=== PATIENT | female | born 1960 | race Caucasian/White ===

== ENCOUNTER 2017-09-11 09:00 | Day surgery (SDC) | payer OTHER ==
[~2017-09-11] VITALS: Ht 154.9 cm; Wt 64.2 kg
[2017-09-11 09:39] VITALS: Ht 154.9 cm; Wt 64.2 kg
[2017-09-11] MEDS ORDERED: LISI10TA2 PO (10:07)
[2017-09-11] MEDS ORDERED: LORA5SOL5 PO (10:07)
[2017-09-11] MEDS ORDERED: ATOR40TA68 PO (10:07)
[2017-09-11 10:20] VITALS: BP 148/66; PULSE 58; RESP 20
--- NOTE | 2017-09-11 10:52 | OPPN ---
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
[2017-09-11] MEDS ORDERED: FENTAnyl 50 MCG/ML VIAL ONE (11:12)
[2017-09-11] MEDS ORDERED: MIDAZOLAM 1 MG/ML 2 ML INJ ONE ×2 (11:12)
[2017-09-11 11:18] VITALS: BP 111/65; RESP 11
--- NOTE | 2017-09-11 12:40 | GILP ---
DATE OF PROCEDURE: NAME OF PROCEDURE: Colonoscopy. SURGEON: Murtaza Rose MD PREOPERATIVE DIAGNOSIS: Screening colonoscopy. POSTOPERATIVE DIAGNOSES: 1. Colonoscopy all the way to the cecum. 2. Internal hemorrhoids. 3. No colon neoplasm was identified. INDICATION FOR THE PROCEDURE: Ms. Rajni Zhao is a 57-year-old female patient who was scheduled fo r screening colonoscopy. The procedure and possible complications were well explained to the patient. The patient understood and consented to the procedure. DESCRIPTION OF PROCEDURE: Under the influence of fentanyl and Versed, the colonoscope was carefully introduced in the rectum and under direct vision, it was advanced all the way to the cecum. FINDINGS: The patient had internal hemorrhoids. No colon neoplasm was identified. She tolerated the procedure very well and there was no complication from the procedure. At the end of the procedure, she was awake with stable vital signs and she was discharged home to the care of h er family. IMPRESSION: Please see postoperative diagnoses. PLAN: Next screening colonoscopy in 10 years. Dictated By: MURTAZA REYES/CHRIS Conf#: [id number] DID#: [id number]
== END 2017-09-11 11:28 | disposition home or self-care (01) ==
LOC: GIL 09:00
PROVIDERS: ATTEND Internal Medicine Gastroenterology
DX: Z12.11 Encounter for screening for malignant neoplasm of colon (principal); K64.8 Other hemorrhoids; I10 Essential (primary) hypertension
CPT/HCPCS: 45378; J2250; J3010